=== PATIENT | female | born 1945 | race Caucasian/White ===

== ENCOUNTER → 2018-06-05 12:49 | Outpatient (CLI) | payer MEDICARE, BC ==
--- NOTE | 2018-06-08 15:12 | EC ---
PATIENT:JUNE LEVY DATE OF SERVICE: 06/05/18 SEX: F MEDICAL RECORD: [id number] DATE OF : [birth year] LOCATION:[facility] AGE OF PATIENT: 73 ADMISSION DATE: 06/05/18 REFERRING PHYSICIAN: INTERPRETING PHYSICIAN: YASMIN HIGGINS MD ECHOCARDIOGRAM REPORT ECHO CHARGES 4 ECHO COMPLETE Date: 06/05/18 CLINICAL DIAGNOSIS: HTN/MITRAL REGURG ECHOCARDIOGRAPHIC MEASUREMENTS (adult normal given) AC root (d.<3.7cm) 3.6 cm LV Septum d (<1.2 cm> 1.2 cm Valve Excursion 1.7 cm LV Septum (systole) 1.5 cm Left Atria (s.<4.0cm> 4.1 cm LVPW d(<1.2cm) 1.1 cm RV (d.<2.3cm) 2.9 cm LVPW (sytole) 1.5 cm LV diastole(<5.6CM) 4.3 cm MV E-F(>70mm/sec) cm LV systole 3.2 cm LVOT Diameter 2.2 cm MV exc.(>10mm) 2.0 cm Est.ejection fraction (50-75%) % DOPPLER: LVIT cm/sec A 102 cm/sec E 74.0 cm/sec LA cm/sec RVSP 28 mmHg LVOT 104 cm/sec AOP1/2T m/s Asc. 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 FINDINGS: 1. Left ventricular chamber size is within normal limits. Left ventricular systolic function is normal. Overall ejection fraction estimated at 60%. 2. Left atrium is enlarged at 4.1 cm. Right atrium and right ventricle chamber sizes are within normal limits. 3. Valvular structures have normal structure and motion. ECHOCARDIOGRAM REPORT [id number] JUNE LEVY 4. Doppler interrogation reveals mild aortic insufficiency, [id number] mitral regurgitation, mild tricuspid regurgitation, no other valvular insufficiency or stenosis. Pulmonary systolic pressure is normal estimated 28 mmHg. 5. No evidence of pericardial effusion or left ventricular thrombus. TRANSINT:[id number] Voice Confirmation ID: [id number] DOCUMENT ID: [id number] YASMIN HIGGINS MD at 1512 CC: [id number] DICTATION DATE: 06/06/18 1128 METALWORKER: 06/06/18 1234 DEP CLI 06/05/18 [id number] [place] [address]
== END | disposition home or self-care (01) ==
LOC: D.HCCARDIO 12:49
PROVIDERS: ATTEND Internal Medicine Interventional Cardiology
DX: I10 Essential (primary) hypertension (principal)